=== PATIENT | male | born 1940 ===

== ENCOUNTER 2017-12-08 07:47 | Outpatient (CLI) | payer OTHER | END 2017-12-08 07:58 | disposition home or self-care (01) | LOC: RAD 07:47 | DX: R09.02 Hypoxemia (principal) ==

== ENCOUNTER 2018-10-18 15:34 | Emergency (ER) | payer OTHER ==
[~2018-10-18] VITALS: Ht 170.2 cm; Wt 80.7 kg
[2018-10-18] MEDS ORDERED: TESSALON PERLE100 M1 PO (22:29)
[2018-10-18] MEDS ORDERED: SYMBICORT 16010.2 GM IH (22:29)
== END 2018-10-18 22:46 | disposition home or self-care (01) ==
LOC: ER 15:34
DX: R06.02 Shortness of breath (principal); R09.89 Other specified symptoms and signs involving the circulatory and respiratory systems